=== PATIENT | female | born 1985 | race Caucasian/White ===

== ENCOUNTER 2020-02-15 19:51 | Emergency (ER) | payer OTHER, SELFPAY ==
[2020-02-15 19:54] VITALS: BP 184/86; PULSE 99; RESP 20; TEMP 39.6; O2SAT 98
--- NOTE | 2020-02-15 20:42 | ED.URI ---
HPI - URI/Sore Throat General Chief Complaint: Upper Respiratory Infection Stated Complaint: flu like symptoms, fever Time Seen by Provider: 02/15/20 20:10 History of Present Illness HPI Narrative: 35-year-old female presents emergency department with acute onset of sore throat and fever today. Patient reports fever has been around 103-104 which is come down with ibuprofen. She also reports bilateral earaches, nausea, and chills. She denies shortness of breath, vomiting. She has not had any recent travel or contact with anyone who has been ill. 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 Patient has been taking ibuprofen at home. Related Data Allergies Allergy/AdvReac Type Severity Reaction Status Date / Time No Known Allergies Allergy Mild Verified 08/08/17 10:34 Review of Systems Review of Systems: Narrative: CONSTITUTIONAL: Reports fever and chills. EYES: Denies visual changes, redness, or discharge. ENT: Denies rhinorrhea, congestion. Reports sore throat and bilat earache. CARDIOVASCULAR: Denies chest pain, palpitations, or edema. RESPIRATORY: Denies cough or dyspnea. GASTROINTESTINAL: Denies abdominal pain, vomiting, or diarrhea. Reports nausea. SKIN: Denies rash or itching. MUSCULOSKELETAL: Reports myalgias. NEUROLOGIC: Denies headache, numbness, or weakness. PSYCHIATRIC: Denies anxiety or depression. [facility] Past Medical History Medical History (Updated 02/16/20 @ 00:00 by [facility]) Patient denies medical problems Surgical History Surgical History (Updated 02/15/20 @ 22:10 by AKIKO Ferrell) History of section History of cholecystectomy Family History Family History (Updated 02/15/20 @ 22:10 by AKIKO Ferrell) Mother Atrial fibrillation Diabetes mellitus Heart disease Social History Social History (Updated 02/15/20 @ 22:11 by AKIKO Ferrell) Smoking status: Never smoker Alcohol intake: never Substance use: never Gender identity (if verbalized by the patient): Female Exam Narrative: Exam Narrative: GENERAL: Appears uncomfortable. Febrile. HEAD: Normocephalic, atraumatic. EYES: Sclera anicteric. ENT: Nares clear, no rhinorrhea or epistaxis. Mucous membranes moist. Tonsillar pillars 3+ bilateral with exudates. Uvula is midline, there is no palatal petechiae. NECK: Supple. Bilateral tonsillar lymphadenopathy. CHEST: Clear to auscultation. No respiratory distress. HEART: Regular rate and rhythm. No murmur heard. Normal peripheral pulses. ABDOMEN: Soft/obese, nontender, nondistended, normal active bowel sounds. EXTREMITIES: Normal range of motion. No edema. SKIN: Warm, dry, no rash. NEURO: No focal deficits. Alert and oriented x3. PSYCH: Normal mood and affect. Course Vital Signs Vital signs: Vital Signs Temperature 39.6 C H 02/15/20 19:54 Pulse Rate 99 02/15/20 19:54 Respiratory Rate 20 02/15/20 19:54 Blood Pressure 184/86 H 02/15/20 19:54 Pulse Oximetry 98 02/15/20 19:54 Temperature 39.6 C H 02/15/20 19:54 Pulse Rate 99 02/15/20 19:54 Respiratory Rate 20 02/15/20 19:54 Blood Pressure 184/86 H 02/15/20 19:54 Pulse Oximetry 98 02/15/20 19:54 MDM - URI/Sore Throat MDM Narrative Medical decision making narrative: Given acute onset of symptoms and PE finding with a negative influenza will treat for pharyngitis. Cultures are pending. Pt does not have a strong hx of travel or exposure to anyone who recently has traveled or been diagnosed with COVID-19. I suspect this is likely strep. Given fevers have been relatively high so will have pt follow up with PCP in 48 hours if not improving. Differential Diagnosis Differential diagnosis: Likely viral infection, influenza and other (EBV) Lab Data Labs: Influenza A Screen Negative Reference Range: Negative Influenza B Screen Negative Reference Range: Negative Strep Screen Presumptive Negat
[2020-02-15] MEDS: ACETAMINOPHEN 500 MG TABLET 1000 MG PO (21:12)
== END 2020-02-15 21:13 | disposition home or self-care (01) ==
DX: J02.9 Acute pharyngitis, unspecified (principal)
CPT/HCPCS: 87081; 87147; 87804; 87880; 99283; A9270